=== PATIENT | male | born 2000 | race Caucasian/White ===

== ENCOUNTER 2019-03-18 17:35 | Emergency (ER) | payer MEDICAID, OTHER ==
[~2019-03-18] VITALS: Ht 165.1 cm; Wt 91.2 kg
[2019-03-18 17:45] VITALS: BP 137/88
[2019-03-18] MEDS ORDERED: KETOROLAC 60 MG/2 ML VIAL IM ONE (18:00)
[2019-03-18 18:38] VITALS: BP 133/87
== END 2019-03-18 18:38 | disposition home or self-care (01) ==
LOC: MED 17:35
DX: M79.601 Pain in right arm (principal); M79.631 Pain in right forearm
CPT/HCPCS: 99282; J1885